=== PATIENT | male | born 2000 | race Two or more races ===

== ENCOUNTER 2023-10-06 11:52 | Emergency (ER) | payer MEDICARE, OTHER ==
[~2023-10-06] VITALS: Ht 144.8 cm; Wt 41.3 kg
[2023-10-06 13:16] VITALS: BP 102/63; PULSE 96; RESP 16; TEMP 97.5; O2SAT 100
[2023-10-06] MEDS ORDERED: AUG875T PO (14:21)
[2023-10-06] MEDS ORDERED: GUAI200T6 PO (14:21)
[2023-10-06] MEDS ORDERED: IBUP-1454 PO (14:21)
[2023-10-06] MEDS ORDERED: PROM1SOL4 PO (14:21)
== END 2023-10-06 14:23 | disposition home or self-care (01) ==
LOC: ER 11:52
DX: B34.9 Viral infection, unspecified (principal)